=== PATIENT | female | born 1975 | race Caucasian/White ===

== ENCOUNTER 2021-01-27 10:08 | Emergency (ER) | payer SELFPAY ==
[~2021-01-27] VITALS: Ht 157.5 cm; Wt 57.2 kg
--- NOTE | 2021-01-27 10:11 | NUR ---
PT AMBULATED TO BED 7.
[2021-01-27 10:17] VITALS: BP 110/55
--- NOTE | 2021-01-27 10:27 | NUR ---
45 Y/F PRESENT TO ED FOR L KNEE PAIN 1 MONTH. PT DENIES INJURY. PT HAS US DONE ON JANUARY 25, NEG FOR DVT. US SHOWED RUPTURED BAKERS CYST, AND RECOMMENDING MRI OR CAT SCAN. PT DENIES INJURY. PT REPORTS 10/10 PAIN. EDEMA NOTED TO L KNEE. NO ERTHYTHEMA NOTED. PEDAL PULSE 2+ PMH- ARTHRITIS RX- GABAPENTIN, PREDNISONE NKDA
--- NOTE | 2021-01-27 10:50 | NUR ---
DR. WHITE AT BEDSIDE EVALUATING PT.
--- NOTE | 2021-01-27 11:00 | NUR ---
PT DECLINED TO WAIT FOR DISCHARGE PAPERWORK.
[2021-01-27 11:01] VITALS: BP 110/55
== END 2021-01-27 11:00 | disposition home or self-care (01) ==
LOC: MED 10:08
DX: M25.562 Pain in left knee (principal)
CPT/HCPCS: 99283